=== PATIENT | female | born 1970 | race Caucasian/White ===

== ENCOUNTER 2019-11-26 14:50 | Outpatient (CLI) | payer BC, SELFPAY ==
--- NOTE | ~2019-11-26 | MM_ITS ---
EXAMINATION: MM screening [facility] BI w mario HISTORY: Screening mammogram TECHNIQUE: Craniocaudal and mediolateral oblique 3-D tomosynthesis images were obtained and synthetic 2-D images were generated. CAD analysis was submitted and interpreted. COMPARISON: 04/2018, 01/12/2017 bilateral digital screening mammogram examinations BREAST PARENCHYMAL COMPOSITION: There are scattered areas of fibroglandular density. FINDINGS: There is no evidence of suspicious mass, calcification, or architectural distortion to sugg est malignancy in either breast. There has been no suspicious interval change. IMPRESSION: 1. No mammographic evidence of malignancy. 2. Recommend routine screening mammography in one year. BI-RADS Category 1: Negative Reviewed, dictated and finalized at location B.
== END 2019-11-26 14:51 | disposition home or self-care (01) ==
LOC: ANHIMG 14:52
PROVIDERS: PCP Nurse Practitioner Adult Health; Visit Provider Obstetrics & Gynecology
DX: Z12.31 Encounter for screening mammogram for malignant neoplasm of breast (principal)
CPT/HCPCS: 77063; 77067

== ENCOUNTER 2020-11-30 14:15 | Outpatient (CLI) | payer BC, SELFPAY ==
--- NOTE | ~2020-11-30 | MM_ITS ---
EXAMINATION: MM screening [facility] BI w mario HISTORY: Screening mammogram TECHNIQUE: Craniocaudal and mediolateral oblique 3-D tomosynthesis images were obtained and synthetic 2-D images were generated. CAD analysis was submitted and interpreted. COMPARISON: 11/26/2019, 04/30/2018, 01/12/2017 BREAST PARENCHYMAL COMPOSITION: There are scattered areas of fibroglandular density. FINDINGS: There is no evidence of suspicious mass, calcification, or architectural distortion to sugg est malignancy in either breast. There has been no suspicious interval change. IMPRESSION: 1. No mammographic evidence of malignancy. 2. Recommend routine screening mammography in one year. BI-RADS Category 1: Negative Reviewed, dictated and finalized at location A.
== END 2020-11-30 14:16 | disposition home or self-care (01) ==
LOC: ANHIMG 14:18
PROVIDERS: PCP Nurse Practitioner Adult Health; Visit Provider Obstetrics & Gynecology
DX: Z12.31 Encounter for screening mammogram for malignant neoplasm of breast (principal)
CPT/HCPCS: 77063; 77067

== ENCOUNTER 2021-01-17 15:14 | Emergency (ER) | payer BC, SELFPAY ==
[2021-01-17 15:26] VITALS: BP 97/75; PULSE 70; RESP 18; TEMP 36.9; O2SAT 100
--- NOTE | 2021-01-17 15:41 | ED.NAVMDI ---
HPI - Nausea/Vomiting/Diarrhea General Chief complaint: Nausea/Vomiting/Diarrhea Stated complaint: Vomiting Time Seen by Provider: 01/17/21 15:34 Source: patient and RN notes reviewed Mode of arrival: ambulatory Limitations: no limitations History of Present Illness HPI Narrative: 50-year-old female presents with concern for possible food stuck in her esophagus. Reports she ate a roast beef sandwich and feels like it has gotten stuck, she has been vomiting up white phlegm, she tried to take Pepto-Bismol and Tums causing her phlegm to turn pink. She denies abdominal pain or other gastrointestinal symptoms. Reports history of GERD. MD elicited complaint: vomiting Related Data Home Medications Medication Instructions Recorded Confirmed No Home Medications 01/17/21 01/17/21 Allergies Allergy/AdvReac Type Severity Reaction Status Date / Time No Known Allergies Allergy Verified 01/17/21 15:27 Review of Systems Review of Systems: CONSTITUTIONAL: Denies malaise, chills, sweats, or fever. RESPIRATORY: Denies cough or dyspnea. GASTROINTESTINAL: Denies abdominal pain, nausea. Reports vomiting white phlegm, feeling of food stuck in her esophagus All systems reviewed & are unremarkable except as noted in HPI and below PMFSH Family History Family History (Updated 09/25/15 @ 23:21 by DOCTOR UNKNOWN) Mother Patient's mother is in good health Father Family history of diabetes mellitus in first degree relative Social History Social History Alcohol intake: current Comments At time of signature, agree with nursing past medical, surgical, social and family history. There is no relevant family history pertinent to the presenting complaint Exam Narrative: GENERAL: Nontoxic-appearing, well-nourished, and in no acute distress. HEAD: Normocephalic EYES: PERRLA, sclera clear, and EOMI. No nystagmus. ENT: Nares clear. Mucous membranes moist. Oropharynx with mildly erythematous without lesions. Tonsils not enlarged and without exudate. NECK: Supple. CHEST: No respiratory distress. Clear to auscultation. No bony deformities, no asymmetry. Speaks in full sentences. GI: Persistent vomiting white phlegm noted, dry heaving HEART: Regular rate and rhythm. SKIN: Warm, dry, no visible rash. NEURO: Alert and oriented x3. PSYCH: Normal mood and affect Course Course Emergency Course: Patient is aware, understands and agrees to be transferred to the emergency department. Patient agrees to proceed directly to the emergency department. Portions of this record may have been created with voice recognition software Vital Signs Vital signs: Vital Signs Temperature 98.5 F 01/17/21 15:26 Pulse Rate 70 01/17/21 15:26 Respiratory Rate 18 01/17/21 15:26 Blood Pressure 97/75 L 01/17/21 15:26 Pulse Oximetry 100 01/17/21 15:26 Temperature 98.5 F 01/17/21 15:26 Pulse Rate 70 01/17/21 15:26 Respiratory Rate 18 01/17/21 15:26 Blood Pressure 97/75 L 01/17/21 15:26 Pulse Oximetry 100 01/17/21 15:26 Reviewed. Transfer Transfered to: Jonathan Transfer rationale: Possible food bolus Accepting physician: Stephy MDM - Nausea/Vomiting/Diarrhea MDM Narrative Medical decision making narrative: Exam findings warrant further evaluation in the emergency department; patient is non-toxic appearing and is in no distress. Patient is appropriate for transfer via private vehicle Critical Care Time Critical Care Time Critical Care Time: No Discharge Plan Discharge Clinical Impression: Vomiting Patient Disposition: Acute Care Hospital Condition: Stable Prescriptions: No Action No Home Medications RF: 0 Follow-up/Referrals: Emerald,ARNULFO Lopez [Primary Care Provider] - Time of Disposition: 15:49
[2021-01-17] MEDS: ONDANSETRON HCL ODT 4 MG TABLET PO (15:46)
== END 2021-01-17 15:50 | disposition short-term general hospital (02) ==
PROVIDERS: Emergency Provider Nurse Practitioner; PCP Nurse Practitioner Adult Health
DX: R11.10 Vomiting, unspecified (principal); K21.9 Gastro-esophageal reflux disease without esophagitis
CPT/HCPCS: 99213; A9270; G0463

== ENCOUNTER 2021-01-17 16:00 | Day surgery (SDC) | payer BC, SELFPAY ==
[2021-01-17] VITALS (7 sets, daily range): BP systolic 110–146; BP diastolic 70–91; PULSE 65–101; RESP 16–21; TEMP 36.5–37; O2SAT 99–100
--- NOTE | ~2021-01-17 | XR_ITS ---
EXAMINATION: XR soft tissue neck DATE: 01/17/2021 16:18 INDICATION: Feels like something is stuck in throat after eating a tiny enthesophyte. TECHNIQUE: AP and lateral views of the soft tissues of the neck were obtained. COMPARISON: Thoracic spine radiographs dated 04/02/2007 FINDINGS: The cervical and thoracic trachea appears widely patent. Normal epiglottis. Prevertebral soft tissues are unremarkable. Mild disc height loss at C5-C6. Mild upper thoracic levoscoliosis. Visualized port ions of the upper lungs are clear. There is suggestion of a possible intraluminal soft tissue density in the hypopharynx above level of the cricopharyngeus. IMPRESSION: 1. Possible intraluminal soft tissue density in the hypopharynx region of the piriform sinus however radiographs have a a limited sensitivity and specificity for organic foreign bodies of soft tissue de nsity. Reviewed, dictated and finalized at location A. WELL GUN PERFORATOR OPERATOR IMPRESSION: 1. Possible intraluminal soft tissue density in the hypopharynx region of the p iriform sinus however radiographs have a a limited sensitivity and specificity for organic foreign bodies of soft tissue density.
[2021-01-17] MEDS: GLUCAGON FOR INJ 1 MG VIAL (17:07)
--- NOTE | 2021-01-17 17:27 | ED.NAVMDI ---
HPI - Nausea/Vomiting/Diarrhea General Chief complaint: Nausea/Vomiting/Diarrhea Stated complaint: something stuck in throat Time Seen by Provider: 01/17/21 17:17 Source: patient Mode of arrival: ambulatory Limitations: no limitations History of Present Illness HPI Narrative: This is a 50-year-old female that presents to the emergency department with a possible food bolus. Was evaluated at urgent care and sent here. Reports she was eating Turkish beef around 12:00 today. She has not been able to keep anything down since then. Reports it feels like she has something stuck in her esophagus. She has had similar problems in the past, but is usually able to eventually get it to pass. She has seen Dr. Her in the past and had an EGD that showed a Schatzki's ring that was dilated. Denies chest pain or shortness of breath. Related Data Home Medications Medication Instructions Recorded Confirmed No Home Medications 01/17/21 01/17/21 Allergies Allergy/AdvReac Type Severity Reaction Status Date / Time No Known Allergies Allergy Verified 01/17/21 15:27 Review of Systems Review of Systems: CONSTITUTIONAL: Denies fever CARDIOVASCULAR: Denies chest pain RESPIRATORY: Denies dyspnea. GASTROINTESTINAL: Reports nausea, vomiting All systems reviewed & are unremarkable except as noted in HPI and below PMFSH Past Medical History Medical History (Updated 01/17/21 @ 17:53 by Corinna Del Cid PA-C) History of anxiety Family History Family History (Updated 09/25/15 @ 23:21 by DOCTOR UNKNOWN) Mother Patient's mother is in good health Father Family history of diabetes mellitus in first degree relative Social History Social History (Updated 01/17/21 @ 17:40 by Corinna Del Cid PA-C) Smoking status: Current every day smoker Alcohol intake: current Exam Narrative: GENERAL: Well-appearing, well-nourished, spitting up saliva HEAD: Normocephalic, atraumatic. EYES: EOMI. ENT: Nares clear, no rhinorrhea or epistaxis. Mucous membranes moist. Oropharynx without tonsillar hypertrophy exudate or other lesions. Bilateral TMs pearly bryant non-bulging NECK: Supple. No adenopathy or masses. CHEST: Clear to auscultation. No respiratory distress. No wheezes rales or rhonchi HEART: Regular rate and rhythm. No murmur heard. Normal peripheral pulses. EXTREMITIES: Normal range of motion. No edema. SKIN: Warm, dry, no rash. NEURO: No focal deficits. Alert and oriented x3. PSYCH: Normal mood and affect Course Consultations Consultation #1: Spoke with Dr. Lozano about patient and work-up. Patient will be taken to the GI lab Date: 01/17/21 Time: 17:53 Vital Signs Vital signs: Vital Signs Temperature 97.7 F 01/17/21 16:02 Pulse Rate 74 01/17/21 16:02 Respiratory Rate 20 01/17/21 16:02 Blood Pressure 110/70 01/17/21 16:02 Pulse Oximetry 100 01/17/21 16:02 Temperature 97.7 F 01/17/21 16:02 Pulse Rate 68 01/17/21 17:49 Respiratory Rate 17 01/17/21 17:49 Blood Pressure 133/83 01/17/21 17:49 Pulse Oximetry 100 01/17/21 17:49 MDM - Nausea/Vomiting/Diarrhea MDM Narrative Medical decision making narrative: Patient presents to the emergency department for food bolus. Is able to tolerate some secretions. Has not been able to keep down any water since 12:00 today. Patient has history of Schatzki's ring has seen Dr. Her in the past. Spoke with Dr. Lozano about patient and work-up. Patient will be taken to the GI lab for further management Lab Data Attestation: I reviewed the patient's lab results. Result diagrams: 01/17/21 17:36 01/17/21 17:36 Labs: Lab Results 01/17/21 01/17/21 Range/Units 17:36 17:36 WBC Pending RBC Pending Hgb Pending Hct Pending MCV Pending MCH Pending MCHC Pending RDW Pending Plt Count Pending MPV Pending Immature Gran % (Auto) Pending Neut % (Auto) Pending Lymph % (A
[2021-01-17] MEDS: SODIUM CHLORIDE 0.9% IV 500 ML 999 ML IV CONT (17:46)
[2021-01-17 17:52] LABS: Basophils Absolute Auto 0.1 K/mm3 (0.0-0.1); Basophils Percent Auto 0.8 % (0.2-1.2); Eosinophils Absolute Auto 0.1 K/mm3 (0-0.3); Eosinophils Percent Auto 0.7 % (0-4.4); Hematocrit 35.6 % (37.0-47.0); Hemoglobin 11.8 g/dL (12.0-15.0); Immature Granulocyte Absolute 0.05 K/mm3 (0.00-0.031); Immature Granulocyte Percent A 0.6 % (0-0.5); Lymphocytes Absolute Auto 1.89 K/mm3 (0.9-3.2); Mean Corpuscular HGB Conc 33.1 g/dl (32-36); Mean Corpuscular Hemoglobin 33.7 pg (26-34); Mean Corpuscular Volume 101.7 fl (80-100); Mean Platelet Volume 9.2 fl (7.4-10.4); Monocytes Absolute Auto 0.9 K/mm3 (0.1-0.6); Monocytes Percent Auto 10.3 % (2.6-8.5); Neutrophils Percent Auto 66.6 % (45.5-73.1); Platelet Count Result 263 k/mm3 (150-375); Red Cell Distribution Width 12.7 % (11.5-14.5)
[2021-01-17 18:02] LABS: Alanine Aminotransferase 18 U/L (4-35); Albumin Level 4.5 g/dL (3.5-5.1); Alkaline Phosphatase 58 U/L (38-126); Anion Gap 7 mmol/L (8-16); Aspartate Amino Transferase 29 U/L (14-36); Bilirubin,Total 0.6 mg/dL (0.2-1.3); Blood Urea Nitrogen 16 mg/dL (7-17); Calcium 9.1 mg/dL (8.4-10.2); Carbon Dioxide 28 mmol/L (22-30); Chloride 100 mmol/L (98-107); Estimated CRCL calculation 64 ml/min; Estimated Glomerular Filt Rate > 60; Glucose 135 mg/dL (65-110); Potassium 3.4 mmol/L (3.4-5.0); Sodium 135 mmol/L (137-145)
--- NOTE | 2021-01-17 18:05 | WPDANESEPP ---
Anes - Eval Pre Procedure Procedure: EGD Date/Time: 01/17/21 18:05 Surgeon: Blake Pre Op Diagnosis: something stuck in throat Patient Data Age: 50 Gender: F Height: 1.65 m Weight: 57.27 kg Last Vital Signs Temp 36.5 C 01/17/21 16:02 Pulse 68 01/17/21 17:49 Resp 17 01/17/21 17:49 BP 133/83 01/17/21 17:49 Pulse Ox 100 01/17/21 17:49 Allergies Allergy/AdvReac Type Severity Reaction Status Date / Time No Known Allergies Allergy Verified 01/17/21 15:27 Home Medications Medication Instructions Recorded Confirmed Type No Home Medications 01/17/21 01/17/21 History Laboratory Tests 01/17/21 01/17/21 17:36 17:36 WBC 9.0 K/mm3 K/mm3 (4.5-10.0) RBC 3.50 M/mm3 L M/mm3 (4.2-5.4) Hgb 11.8 g/dL L g/dL (12.0-15.0) Hct 35.6 % L % (37.0-47.0) MCV 101.7 fl H fl (80-100) MCH 33.7 pg pg (26-34) MCHC 33.1 g/dl g/dl (32-36) RDW 12.7 % % (11.5-14.5) Plt Count 263 k/mm3 k/mm3 (150-375) MPV 9.2 fl fl (7.4-10.4) Immature Gran % (Auto) 0.6 % H % (0-0.5) Neut % (Auto) 66.6 % % (45.5-73.1) Lymph % (Auto) 21.0 % % (18.3-44.2) Culberson % (Auto) 10.3 % H % (2.6-8.5) Eos % (Auto) 0.7 % % (0-4.4) Baso % (Auto) 0.8 % % (0.2-1.2) Lymph # (Auto) 1.89 K/mm3 K/mm3 (0.9-3.2) [place] # (Auto) 0.9 K/mm3 H K/mm3 (0.1-0.6) Eos # (Auto) 0.1 K/mm3 K/mm3 (0-0.3) Baso # (Auto) 0.1 K/mm3 K/mm3 (0.0-0.1) Abs Immat Gran (auto) 0.05 K/mm3 H K/mm3 (0.00-0.031) Absolute Neuts (auto) 6.0 K/mm3 K/mm3 (1.3-6.7) Absolute Nucleated RBC 0.0 K/mm3 K/mm3 (0.0-0.012) Nucleated RBC % 0.0 % % (0.0-0.2) Sodium 135 mmol/L L mmol/L (137-145) Potassium 3.4 mmol/L mmol/L (3.4-5.0) Chloride 100 mmol/L mmol/L (98-107) Carbon Dioxide 28 mmol/L mmol/L (22-30) Anion Gap 7 mmol/L L mmol/L (8-16) BUN 16 mg/dL mg/dL (7-17) Creatinine 0.80 mg/dL mg/dL (0.7-1.0) Estim Creat Clear Calc 64 ml/min ml/min Estimated GFR > 60 (59 - ) Glucose 135 mg/dL H mg/dL (65-110) Calcium 9.1 mg/dL mg/dL (8.4-10.2) Total Bilirubin 0.6 mg/dL mg/dL (0.2-1.3) AST 29 U/L U/L (14-36) ALT 18 U/L U/L (4-35) Alkaline Phosphatase 58 U/L U/L (38-126) Total Protein 7.0 g/dL g/dL (6.3-8.2) Albumin 4.5 g/dL g/dL (3.5-5.1) Patient hx anesthesia problems: none Family hx anesthesia problems: none Results Review: All pre-operative results and documents have been reviewed as part of the pre-operative evaluation. [facility] Past Medical History Medical History History of anxiety Family History Family History Mother Patient's mother is in good health Father Family history of diabetes mellitus in first degree relative Social History Social History Smoking status: Current every day smoker Alcohol intake: current Exam Day of Procedure 01/17/21 18:05 Patient weight: normal Heart: regular rate and rhythm Lungs: clear to auscultation and normal air movement Airway: Mallampati scale class II Neurological: alert and oriented
--- NOTE | 2021-01-17 18:48 | WPDANESEFPP ---
Anes - Eval Final PreProcedure Day of Procedure 01/17/21 18:48 Patient weight: normal Heart: regular rate and rhythm Lungs: clear to auscultation and normal air movement Airway: Mallampati scale class II Neurological: alert and oriented Last oral intake: >/= 8 hours ASA classification: II Emergent: no Anesthetic plan: proceed Anesthesia type and monitoring: general ETT Results Review: All pre-operative results and documents have been reviewed as part of the pre-operative evaluation. Informed Consent: The patient's anesthetic plan and its attendant risks and benefits were discussed with the patient/family/POA. Questions were solicited and answers provided to the satisfaction of the patient/family/POA.
--- NOTE | 2021-01-17 18:54 | WPDGICN ---
Assessment and Plan Assessment and plan (1) Esophageal obstruction due to food impaction: Code(s): K22.2 - Esophageal obstruction; T18.128A - Food in esophagus causing other injury, initial encounter Status: Acute Assessment and Plan: Patient has a food impaction after eating roast beef. She does have a distant history of esophageal web suggesting underlying acid reflux as the etiology. Plan is for EGD to remove the obstruction and possible dilatation. Further recommendations will be given after endoscopy GI Consult Note Consult date/time: 01/17/21 18:54 HPI: Marilin Santiago is a 50 year old female seen in evaluation at the request of the emergency room. Patient was eating roast beef at noon. Suddenly was unable to eat or swallow anything subsequently including her saliva. She does admit to occasional heartburn. She has had difficulty with food passing in the past. Many years ago had an EGD which revealed a hiatal hernia and a Schatzki's ring. This was dilated by Dr. Samuel many years ago. Patient states that she takes omeprazole on an intermittent basis. Family history is noncontributory. Review of Systems Review of Systems: All systems reviewed & are unremarkable except as noted in HPI and below PMFSH Past Medical History Medical History History of anxiety Family History Family History Mother Patient's mother is in good health Father Family history of diabetes mellitus in first degree relative Social History Social History Smoking status: Current every day smoker Alcohol intake: current Meds Home Medications and Allergies Home Medications Medication Instructions Recorded Confirmed Type No Home Medications 01/17/21 01/17/21 History Allergies Allergy/AdvReac Type Severity Reaction Status Date / Time No Known Allergies Allergy Verified 01/17/21 18:50 Vital Signs Vital Signs - 24 hr 01/17/21 16:02 01/17/21 17:49 01/17/21 18:38 Temperature 97.7 F Pulse Rate 74 68 80 Respiratory Rate 20 17 18 Blood Pressure 110/70 133/83 131/80 Pulse Oximetry 100 100 100 01/17/21 18:51 Temperature 98.6 F Pulse Rate 65 Respiratory Rate 16 Blood Pressure 130/73 Pulse Oximetry 100 Exam Narrative: Physical exam reveals patient be alert. Vital signs stable. HEENT exam is unremarkable. Patient is anicteric. Lungs are clear to auscultation and percussion. Heart is without murmur or extra sounds. Abdominal exam bowel sounds are present soft nontender with no hepatosplenomegaly. Results Labs CBC & Chem 7: 01/17/21 17:36 01/17/21 17:36 Labs: Short CBC 01/17/21 Range/Units 17:36 WBC 9.0 (4.5-10.0) K/mm3 Hgb 11.8 L (12.0-15.0) g/dL Hct 35.6 L (37.0-47.0) % Plt Count 263 (150-375) k/mm3 BMP 01/17/21 17:36 Sodium 135 L Potassium 3.4 Chloride 100 Carbon Dioxide 28 BUN 16 Creatinine 0.80 Glucose 135 H Calcium 9.1 Liver Function 01/17/21 Range/Units 17:36 Total Bilirubin 0.6 (0.2-1.3) mg/dL AST 29 (14-36) U/L ALT 18 (4-35) U/L Alkaline Phosphatase 58 (38-126) U/L Albumin 4.5 (3.5-5.1) g/dL AMG Consult Billing Inpatient Consult [id number] Consult Moderate
[2021-01-17] MEDS: LACTATED RINGERS 1,000 ML 150 ML IV CONT (18:55)
--- NOTE | 2021-01-17 19:17 | SUR.PREOP ---
Pt states history of partial hysterectomy no urine needed.
== END 2021-01-17 20:13 | disposition home or self-care (01) ==
LOC: ANHED 17:38 → ANHSURGERY 17:52 → ANHED 18:47 → ANHENDO 18:57
PROVIDERS: Physician Assistant; Emergency Provider Emergency Medicine; PCP Nurse Practitioner Adult Health; Visit Provider Internal Medicine Gastroenterology
PROC: 0DJ08ZZ Inspection of Upper Intestinal Tract, Via Natural or Artificial Opening Endoscopic (ICD-10-PCS; CPT 43235; principal; 2021-01-17 18:45)
DX: T18.128A Food in esophagus causing other injury, initial encounter (principal); K22.2 Esophageal obstruction
CPT/HCPCS: 43249; 43247; 36415; 70360; 80053; 85025; 96372; 99285; A9270; C1726; J0330; J1610; J2704; J7040; J7120

== ENCOUNTER 2022-04-13 15:35 | Outpatient (CLI) | payer OTHER, SELFPAY ==
--- NOTE | ~2022-04-13 | MM_ITS ---
EXAMINATION: MM screening susan BI w mario HISTORY: Screening mammogram TECHNIQUE: Craniocaudal and mediolateral oblique 3-D tomosynthesis images were obtained and synthetic 2-D images were generated. CAD analysis was submitted and interpreted. COMPARISON: 11/2020, 11/26/2019, 04/2018 bilateral screening mammogram examinations BREAST PARENCHYMAL COMPOSITION: There are scattered areas of fibroglandular density. FINDINGS: There is no evidence of suspicious mass, calcification, or architectural distortion to sugg est malignancy in either breast. There has been no suspicious interval change. IMPRESSION: 1. No mammographic evidence of malignancy. 2. Recommend routine screening mammography in one year. BI-RADS Category 1: Negative Reviewed, dictated and finalized at location A. ING MACHINE OPERATOR
== END 2022-04-13 15:36 | disposition home or self-care (01) ==
PROVIDERS: PCP Nurse Practitioner Adult Health; Visit Provider Obstetrics & Gynecology
DX: Z12.31 Encounter for screening mammogram for malignant neoplasm of breast (principal)
CPT/HCPCS: 77063; 77067

== ENCOUNTER 2023-06-12 15:30 | Outpatient (CLI) | payer OTHER, SELFPAY ==
--- NOTE | ~2023-06-12 | MM_ITS ---
EXAMINATION: MM screening susan BI w mario HISTORY: Screening TECHNIQUE: Craniocaudal and mediolateral oblique 3-D tomosynthesis images were obtained and synthetic 2-D images were generated. CAD analysis was submitted and interpreted. COMPARISON: Comparison to multiple prior studies sequentially, with oldest reviewed study dated 11/25. BREAST PARENCHYMAL COMPOSITION: Not dense: There are scattered areas of fibroglandular density. FINDINGS: There is no evidence of suspicious mass, calcification, or architectural distortion to sugg est malignancy in either breast. There has been no suspicious interval change. IMPRESSION: 1. No mammographic evidence of malignancy. 2. Recommend routine screening mammography in one year. BI-RADS Category 1: Negative Reviewed, dictated and finalized at location B.
== END 2023-06-12 15:31 | disposition home or self-care (01) ==
LOC: ANHIMG 15:32
PROVIDERS: PCP Family Medicine; Visit Provider Obstetrics & Gynecology
DX: Z12.31 Encounter for screening mammogram for malignant neoplasm of breast (principal)
CPT/HCPCS: 77063; 77067

== ENCOUNTER 2024-01-09 13:14 | Outpatient (CLI) | payer OTHER, SELFPAY ==
--- NOTE | ~2024-01-09 | CT_ITS ---
EXAMINATION: CT lung screening DATE: 01/09/2024 13:43 INDICATION: NICOTINE DEPENDENCE TECHNIQUE: Computed tomography (CT) of the chest was performed without intravenous contrast. Addition al 3D reconstructions utilizing coronal maximum intensity projection (MIP) were performed. Automated exposure control and iterative reconstruction technique were employed. The dose-length product was 65 .27 mGy-cm. COMPARISON: None FINDINGS: 6 x 4 mm pleural-based nodule at the posterior segment of the right upper lobe. A few approximately 3 mm flat likely intrafissural lymph nodes along the bilateral major fissures. 3 mm nodule and mild di scoid atelectasis in the anterobasilar segment of the left lower lobe. No pneumonia, pulmonary edema or pleural effusion. Heart size is normal. No pericardial effusion. Thoracic aorta is normal in calib er. No pathologically enlarged thoracic lymphadenopathy. Mild thoracic dextrocurvature with minimal s pondylosis. IMPRESSION: 1. Lung-RADS category 2: Benign appearance or behavior. Continue annual screening with noncontrast lo w-dose chest CT in 12 months. Reviewed, dictated and finalized at location B. CTOR OF PERIOPERATIVE SERVICES IMPRESSION: 1. Lung-RADS category 2: Benign appearance or behavior. Continue annual screeni ng with noncontrast low-dose chest CT in 12 months.
== END 2024-01-09 13:15 | disposition home or self-care (01) ==
PROVIDERS: PCP Family Medicine; Visit Provider Family Medicine
DX: Z12.2 Encounter for screening for malignant neoplasm of respiratory organs (principal); Z87.891 Personal history of nicotine dependence
CPT/HCPCS: 71271

== ENCOUNTER 2024-08-08 13:23 | Outpatient (CLI) | payer OTHER, SELFPAY ==
--- NOTE | ~2024-08-08 | MM_ITS ---
EXAMINATION: MM screening susan BI w mario HISTORY: Screening TECHNIQUE: Craniocaudal and mediolateral oblique 3-D tomosynthesis images were obtained and synthetic 2-D images were generated. CAD analysis was submitted and interpreted. COMPARISON: Comparison to multiple prior studies sequentially, with oldest reviewed study dated 12/28. BREAST PARENCHYMAL COMPOSITION: Not dense: There are scattered areas of fibroglandular density. FINDINGS: There is no evidence of suspicious mass, calcification, or architectural distortion to sugg est malignancy in either breast. There has been no suspicious interval change. IMPRESSION: 1. No mammographic evidence of malignancy. 2. Recommend routine screening mammography in one year. BI-RADS Category 1: Negative Reviewed, dictated and finalized at location B.
--- OUTSIDE RECORDS SUMMARY | 2024-08-08 14:04 | XMS_ITS | Encounter Summary ---
Author Organization [facility] Address [address] [place] [address] Care Team Providers Care Fire Dispatcher Name Role Phone Unavailable Primary Care Provider Unavailabl e Encounter Details Date Type Department Care Team (Late st Contact Info) Description 07/21/2022 Lab Requisition [facility] Lab [address] [place] [id number] Quentin Hernandez MD [address] [place] [address] Social History Tobacco Use Types Packs/Day Years Used Date Smoking Tobacco: Never Assessed Comments Unknown Sex and Gender Information Value Date Recorded Sex Assigned at Not on file Legal Sex Female 4:33 PM CDT Gender Identity Not on file Sexual Orientation Not on file documented as of this encounter Plan of Treatment Not on file documented as of this encounter Procedures Procedure Name Priority Date/Time Associated Diagnosis Comments DERMATOPATHOLOGY Routine 07/20/2022 3:33 AM CDT documented in this encounter Results * DERMATOPATHOLOGY (07/20/2022 3:33 AM CDT) Case Report Dermatopathology Report Case: [id number] Authorizing Provider: Quentin Hernandez MD Collected: 07/20/2022 03:33 AM Ordering Location: [facility] Received: 07/22/2022 06:33 AM Pathologist: Jessica Cueto MD Specimens: A) - Skin, floor of suprasernal notch B) - Skin, left post lateral sup thigh 2:18 PM CDT DERMATOPATHOLOGY LABORATORY Final Diagnosis Specimen A. SKIN, floor of suprasernal notch: EPIDERMOID CYST WITH EVIDENCE OF RUPTURE (L72.0) Specimen B. SKIN, left post lateral sup thigh: BENIGN VERRUCOUS KERATOSIS, INFLAMED (L82.1) EPIDERMAL NECROSIS SUGGESTIVE OF EXCORIATION (L98.499) (see microscopic description and comment) 3 2:18 PM CDT DERMATOPATHOLOGY LABORATORY at 1418 CDT Clinical History A: R/O Cyst, BCC B: R/O Cyst, BCC, SCC 3 2:18 PM CDT DERMATOPATHOLOGY LABORATORY Gross Description Specimen A: Received is one formalin filled container labeled with the patient's name and designated floor of suprasernal notch. The specimen consists of a punch biopsy measuring [id number] and it is bisected. Jar 0. Specimen B: Received is one formalin filled container labeled with the patient's name and designated left post lateral sup thigh. The specimen consists of a shave biopsy measuring [id number]. Jar 0. 3 2:18 PM CDT DERMATOPATHOLOGY LABORATORY Microscopic Description Specimen A. SKIN, floor of suprasernal notch: Within the dermis, there is a space lined by epithelium that resembles normal epidermis and the infundibular portion of the hair follicle. Surrounding this is an infiltrate with neutrophils, histiocytes, and multinucleated giant cells. Specimen B. SKIN, left post lateral sup thigh: Sections show hyperkeratosis, mild papillomatosis, and acanthosis. Inflammatory cells are present within the dermis. The epidermis is focally necrotic and covered with a scale-crust. There is fibrin at the base. COMMENT: These histological findings can be seen in a verruca vulgaris or a seborrheic keratosis. A psoriasiform keratosis was also considered. 3 2:18 PM CDT DERMATOPATHOLOGY LABORATORY Disclaimer An external and internal positive and negative controls are appropriate for the histochemical, immunohistochemical and immunofluorescence stain(s) in this case (if any), except where stated explicitly. The performance characteristics of the stain(s) cited in this report were developed and its performance characteristic determined by the Dermatopathology Laboratory at [facility], directed by Dr. Heraclio Driver. These tests need not be, and therefore are not, approved by the [place] Food and Drug Administration. The tests are used for clinical purposes. Billing Codes Specimen Charges Stain Charges 84594 54114 1 1 3 2:18 PM CDT DERMATOPATHOLOGY LABORATORY Embedded Images 2:18 PM CDT DERMATOPATHOLOGY LABORATORY Pathology/Cytology TISSUE SPECIMEN FROM SKIN / Unknown 07/20/2022 3:33 AM CDT 07/22/2022 6:33 AM CDT Miscellaneous samples (specimen) TISSUE SPECIMEN FROM SKIN / Unknown 07/20/2022 3:33 AM CDT 07/22/2022 6:33 AM CDT Quentin Hernandez MD LAB - PATHOLOGY/CYTOLOGY ORD ERABLES Final Result DERMATOPATHOLOGY LABORATORY [facility] - Department of Dermatology [facility] Medicine [address] [place] [address], [address] [phone] documented in this encounter Visit Diagnoses Not on filedocumented in this encounter
--- OUTSIDE RECORDS SUMMARY | 2024-08-08 14:04 | XMS_ITS | Clinical Summary ---
Author Organization [facility] [employer] Address [address] [place] [address] Care Team Providers Care Shipping Clerk/Admin Name Role Phone Unavailable Primary Care Provider Unavailabl e Source Comments [facility] [employer],non-owned Affiliates and Associated Physician Practices is amultiple site organization consisting of ambulatory clinics and hospital sitesin [place], [place], [place] and [place]. This disclosure is being madepursuant to the Care Everywhere program and may not contain all information available regarding this patient. Last updated 17.[facility] [employer] Social History Tobacco Use Types Packs/Day Years Used Date Smoking Tobacco: Never Assessed Comments Unknown Sex and Gender Information Value Date Recorded Sex Assigned at Not on file Legal Sex Female 4:33 PM CDT Gender Identity Not on file Sexual Orientation Not on file Plan of Treatment Health Maintenance Due Date Last Done Comments COLOGUARD (AGES 45-75) - COL ON CA SCREENING 1968 COLON MONITORING 1968 COLONOSCOPY - COLON CA SCREENING 1968 CT COLONOGRAPHY - COLON CA SCREENING 1968 Colorectal Cancer Screening 1968 FIT - COLON CA SCREENING 1968 FLEX SIG - COLON CA SCREENING 1968 LIPID TESTING 1968 MAMMOGRAM 1968 PAP SMEAR 1968 HIV SCREENING 1983 HEPATITIS C SCREENING 03/29/1986 DTAP/TDAP/TD VACCINES (1 - Tdap) 1987 HEPATITIS B VACCINE (1 of 3 - 19+ 3-dose series) 1987 PNEUMOCOCCAL VACCINE 50+ (1 of 1 - PCV) 2018 ZOSTER VACCINE (1 of 2) 2018 COVID-19 VACCINE ( - 2023-2 5 season) 2023 DEPRESSION SCREENING 02/28/2024 INFLUENZA VACCINE (Season Ended) 2024 HIB VACCINE Aged Out No longer eligi ble based on patient's age to complete this topic HPV VACCINE Aged Out No longer eligi ble based on patient's age to complete this topic MENINGOCOCCAL (Group B) VACC INE SHARED DECISION-MAKING Aged Out No longer eligibl e based on patient's age to complete this topic MENINGOCOCCAL GROUPS A/C/Y/W VACCINE Aged Out No longer eligible b ased on patient's age to complete this topic Insurance [facility]
== END 2024-08-08 13:24 | disposition home or self-care (01) ==
LOC: ANHIMG 13:26
PROVIDERS: PCP Family Medicine; Visit Provider Obstetrics & Gynecology
DX: Z12.31 Encounter for screening mammogram for malignant neoplasm of breast (principal)
CPT/HCPCS: 77063; 77067

== ENCOUNTER 2025-02-04 15:12 | Outpatient (CLI) | payer OTHER, SELFPAY ==
--- NOTE | ~2025-02-04 | CT_ITS ---
EXAMINATION:CT lung screening DATE: 02/04/2025 15:37 INDICATION: Screening TECHNIQUE: Computed tomography (CT) of the chest was performed without intravenous contrast. The dose-length product (DLP) was 65.66 mGy-cm. COMPARISON: January 09, 2024 FINDINGS: Subpleural nodules right upper lobe image 49 series 4, and right lower lobe image 112 series 4 stable in size and appearance. No new nodules or masses. No gross acute intrathoracic process. Bones and upper abdomen appear stable. Heart and great vessels within normal limits. No acute process seen in the visualized upper abdomen. IMPRESSION: 1. Stable exam with radiographically benign right lung nodules. 2. Lung RADS 2. Follow-up low-dose lung cancer screening chest CT in 12 months recommended. Reviewed, dictated and finalized at location A. [employer]
--- OUTSIDE RECORDS SUMMARY | 2025-02-04 17:43 | XMS_ITS | Clinical Summary ---
Author Organization [facility] [employer] Address [address] [place] [address] Care Team Providers Care Supervisor Grower Name Role Phone Unavailable Primary Care Provider Unavailabl e Source Comments [facility] [employer],non-owned Affiliates and Associated Physician Practices is amultiple site organization consisting of ambulatory clinics and hospital sitesin [place], [place], [place] and [place]. This disclosure is being madepursuant to the Care Everywhere program and may not contain all information available regarding this patient. Last updated 17.[facility] [employer] Social History Tobacco Use Types Packs/Day Years [...] SCREENING 1968 LIPID TESTING 1968 MAMMOGRAM 1968 HIV SCREENING 1983 HEPATITIS C SCREENING 03/29/1986 DTAP/TDAP/TD VACCINES (1 - Tdap) 1987 HEPATITIS B VACCINE (1 of 3 - 19+ 3-dose series) 1987 PAP SMEAR 1989 PNEUMOCOCCAL VACCINE 50+ (1 of 1 - PCV) 2018 ZOSTER VACCINE (1 of 2) 2018 DEPRESSION SCREENING 02/28/2024 COVID-19 VACCINE (1 - 2024-2 6 season) 2024 INFLUENZA VACCINE (#1) 2024 HIB VACCINE Aged Out No longer [...] patient's age to complete this topic Insurance [facility]
--- OUTSIDE RECORDS SUMMARY | 2025-02-04 17:43 | XMS_ITS | Clinical Summary ---
Author Organization [facility] Address [address] [place] [address] Care Team Providers Care Director Of Social Services Name Role Phone Unavailable Primary Care Provider Unavailabl e Social History Tobacco Use Types Packs/Day Years Used Date Smoking Tobacco: Never Assessed Comments Unknown Sex and Gender Information Value Date Recorded Sex Assigned at Not on file Legal Sex Female 7:04 PM CDT Gender Identity Not on file Sexual Orientation Not on file Plan of Treatment Health Maintenance Due Date Last Done Comments Cervical Cancer Screening Pa p Smear (Age 30 to 64) Every 3 Years 1968 Colorectal Cancer Screening Colonoscopy (10 Years) 1968 Annual Physical 1971 Hepatitis C 1986 DTaP, Tdap and Td Vaccines ( 1 - Tdap) 1987 Hepatitis B Vaccines (1 of 3 - 19+ 3-dose series) 1987 Cervical Cancer Screening Pa p with HPV Testing (Age 30 to 64) Every 5 Years 1998 Cervical Cancer Screening with HPV 1998 Mammogram Screening 2008 Pneumococcal Vaccine: 50+ Ye ars (1 of 1 - PCV) 2018 Zoster Vaccines (1 of 2) 2018 COVID-19 Vaccine (2024-2 6 season) 2024 Influenza Adult (#1) 2024 Hepatitis A Vaccines Aged Out No long er eligible based on patient's age to complete this topic Meningococcal B Vaccine Aged Out No l onger eligible based on patient's age to complete this topic Meningococcal Vaccine Aged Out No tani isidro eligible based on patient's age to complete this topic RSV Immunizations Under 20 Months Aged Out No longer eligible based on patient's age to complete this topic
--- OUTSIDE RECORDS SUMMARY | 2025-02-04 17:43 | XMS_ITS | Encounter Summary ---
Author Organization [facility] Address [address] [place] [address] Care Team Providers Care Shirt Ironer Name Role Phone Unavailable Primary Care Provider Unavailabl e Encounter Details Date Type Department Care Team (Late st Contact Info) Description 07/21/2022 Lab Requisition [facility] - DermPath Lab [address] [facility] [place] [id number] Quentin Hernandez MD [address] [place] [address] Social History Tobacco Use Types Packs/Day Years [...] AM CDT) Case Report Dermatopathology Report Case: [id number] Authorizing Provider: Quentin Hernandez MD Collected: 07/20/2022 03:33 AM Ordering Location: [facility] DermPath Lab Received: 07/22/2022 06:33 AM Pathologist: [...] specimen consists of a punch biopsy measuring [id number] and it is bisected. Jar 0. Specimen B: Received is one formalin filled container labeled with the patient's name and designated left post lateral sup thigh. The specimen consists of a shave biopsy measuring [id number]. Jar 0. 3 2:18 PM CDT DERMATOPATHOLOGY [...] characteristic determined by the Dermatopathology Laboratory at [facility], directed by Dr. Heraclio Driver. These tests need not be, and therefore are not, approved by the [place] Food and Drug Administration. The tests are used for clinical purposes. Billing Codes Specimen Charges Stain Charges 30799 00661 1 1 3 2:18 PM CDT DERMATOPATHOLOGY LABORATORY Embedded Images 2:18 PM CDT DERMATOPATHOLOGY LABORATORY Pathology/Cytology TISSUE SPECIMEN FROM SKIN / Unknown 07/20/2022 3:33 AM CDT 07/22/2022 6:33 AM CDT Miscellaneous samples (specimen) TISSUE SPECIMEN FROM SKIN / Unknown 07/20/2022 3:33 AM CDT 07/22/2022 6:33 AM CDT Quentin Hernandez MD LAB - PATHOLOGY/CYTOLOGY ORD ERABLES Final Result DERMATOPATHOLOGY LABORATORY [facility] - Department of Dermatology [facility] Medicine [address] [place] [address], [address] [phone] documented in this encounter Visit Diagnoses Not on filedocumented in this encounter
== END 2025-02-04 15:13 | disposition home or self-care (01) ==
PROVIDERS: PCP Family Medicine; Visit Provider Family Medicine
DX: Z12.2 Encounter for screening for malignant neoplasm of respiratory organs (principal); Z87.891 Personal history of nicotine dependence
CPT/HCPCS: 71271